=== PATIENT | female | born 1970 | race Two or more races ===

== ENCOUNTER → 2019-03-21 | Emergency (ER) | payer OTHER ==
[~2019-03-21] VITALS: Ht 160 cm; Wt 65.8 kg
[~2019-03-21] MED LIST: ANTIVERT50 MG PO; KETO10TA2 PO; LIPOFLAVOVIT CA1 TAB PO; PYRIDIUM200 MG PO; SULFAMETHOXAZOL1 TA4 PO
== END | disposition home or self-care (01) ==
LOC: ER 19:14
DX: B34.9 Viral infection, unspecified (principal)

== ENCOUNTER 2024-05-05 08:45 | Inpatient (IN) | payer OTHER ==
[~2024-05-05] VITALS: Ht 160 cm; Wt 72.6 kg
[2024-05-05 09:26] LABS: URINE APPEARANCE Clear; URINE BILIRRUBIN Negative (NEGATIVE); URINE BLOOD Negative; URINE COLOR Yellow; URINE GLUCOSE Negative (NEGATIVE); URINE LEUKOCYTE Negative; URINE NITRATE Negative; URINE PROTEIN Negative (NEGATIVE); URINE UROBILINOGEN 0.2 E.U./dl
[2024-05-05 09:26] LABS: HEMATOCRIT 41.9 % (36.0-45.00); HEMOGLOBIN 14.5 g/dL (12.0-15.00); MEAN CELL VOLUME 92.2 fL (80.00-100.00); MEAN CORPUSCULAR HEMOGLOBIN 31.8 pg (27.00-32.0); MEAN CORPUSCULAR HGB CONC 34.5 g/dl (32.0-36.0); PLATELET COUNT 295 K/uL (150-450); RED BLOOD COUNT 4.54 M/uL (4.00-6.00)
[2024-05-05 09:28] LABS: URINE BACTERIA 312.3 uL (0.0-1933); URINE EPITHELIAL CELLS 8.4 uL (0.0-38.8); URINE RBC 4.7 uL (0.0-20.8)
[2024-05-05] MEDS ORDERED: COZAAR25 MG PO (09:50)
[2024-05-05 10:03] LABS: PARTIAL THROMBOPLASTIN TIME 29.5 SECONDS (22.0-34.0); PROTHROMBIN TIME 10.5 SECONDS (9.0-11.5)
[2024-05-05 10:15] LABS: ALBUMIN 3.5 gm/dL (3.4-5.0); BILIRUBIN TOTAL 0.5 mg/dL (0.3-1.2); CALCIUM 9.6 mg/dL (8.5-10.1); CREATININE SERUM 0.76 mg/dL (0.55-1.02); GFR 79.91; POTASSIUM 4.87 mEq/L (3.5-5.1); TOTAL PROTEIN 7.5 gm/dL (6.4-8.2)
[2024-05-05 10:31] LABS: URINE WBC 1.3 uL (0.0-23.2)
[2024-05-11] MEDS ORDERED: POVIDONE-IODINE 118 ML BOTT TOP ONE (10:30)
[2024-05-11] MEDS ORDERED: CEFAZOLIN SODIUM 1,000 MG VIAL IV ONE (10:30)
[2024-05-11] MEDS ORDERED: MONTELUKAST SOD10 MG (10:49)
[2024-05-11] MEDS ORDERED: LOSARTAN POTASS25 MG (10:49)
[2024-05-11] MEDS ORDERED: DICLOFENAC POTA50 MG (10:50)
[2024-05-11] MEDS ORDERED: SUGAMMADEX SODIUM 200 MG/2 ML VIAL IV ONE (11:30)
[2024-05-11] MEDS ORDERED: ONDANSETRON HCL 2 MG/ML VIAL IV PRN (12:00)
[2024-05-11] MEDS ORDERED: IBUprofen 400 MG TABLET PO PRN (12:00)
[2024-05-11] MEDS ORDERED: RINGERS SOLUTION,LACTATED 1,000 ML IV SCH (12:00)
[2024-05-11] MEDS ORDERED: MEPERIDINE HCL/PF 50 MG/ML VIAL IM PRN (12:00)
[2024-05-12] MEDS ORDERED: OxyCODONE HCL/APAP UD (PERCOCET) PO PRN (10:45)
[2024-05-12] MEDS ORDERED: ENOXAPARIN SODIUM 40 MG/0.4 ML SYRINGE SUBCUTANEO SCH (12:00)
[2024-05-12 13:32] LABS: HEMATOCRIT 34.9 % (36.0-45.00); HEMOGLOBIN 11.9 g/dL (12.0-15.00); MEAN CELL VOLUME 90.7 fL (80.00-100.00); MEAN CORPUSCULAR HEMOGLOBIN 30.8 pg (27.00-32.0); MEAN CORPUSCULAR HGB CONC 33.9 g/dl (32.0-36.0); PLATELET COUNT 227 K/uL (150-450); RED BLOOD COUNT 3.85 M/uL (4.00-6.00); RED CELL DISTRIBUTION WIDTH 13.1 % (11.5-14.5)
[2024-05-12] MEDS ORDERED: SIMETHICONE 125 MG CAPSULE PO SCH (21:00)
[2024-05-13] MEDS ORDERED: BISACODYL 10 MG/SUPP.RECT SUPP.RECT RECTAL SCH (09:00)
[2024-05-13] MEDS ORDERED: SIMETHICONE 125 MG CAPSULE PO SCH (21:00)
== END 2024-05-13 08:59 | disposition home or self-care (01) | DRG 743 ==
LOC: O/R 05-11 06:50 → OB/GYN 05-11 06:50 → SURG 05-11 07:00 → OB/GYN 05-11 12:40
PROVIDERS: ADMIT Obstetrics & Gynecology; ATTEND Obstetrics & Gynecology
PROC: 0UT70ZZ Resection of Bilateral Fallopian Tubes, Open Approach (ICD-10-PCS; 2024-05-11)
PROC: 0UT20ZZ Resection of Bilateral Ovaries, Open Approach (ICD-10-PCS; 2024-05-11)
PROC: 0UT90ZL Resection of Uterus, Supracervical, Open Approach (ICD-10-PCS; principal; 2024-05-11 07:00)
DX: D25.1 Intramural leiomyoma of uterus (principal); D25.2 Subserosal leiomyoma of uterus; D25.0 Submucous leiomyoma of uterus; Z20.822 Contact with and (suspected) exposure to COVID-19